=== PATIENT | female | born 1990 | race Caucasian/White ===

== ENCOUNTER 2021-01-15 02:24 | Emergency (ER) | payer BC ==
[~2021-01-15] VITALS: Ht 167.6 cm; Wt 59.0 kg
[2021-01-15] MEDS ORDERED: ONDANSETRON HCL 4MG/2ML INJ IV STA (03:14)
[2021-01-15] MEDS ORDERED: SODIUM CHLORIDE 0.9% 1,000 ML IV ONE (03:15)
[2021-01-15 04:05] LABS: BASOPHILS % 0.3 % (0.0-2.0); EOSINOPHILS % 0.3 % (0.0-5.0); HEMATOCRIT. 40.7 % (36.0-48.0); HEMOGLOBIN. 13.8 g/dL (12.0-16.0); LYMPHOCYTES % 14.2 % (20.0-50.0); MEAN CORPUSCULAR HEMOGLOBIN 28.7 pg (28.0-32.0); MEAN CORPUSCULAR VOLUME 84.5 fL (81.0-99.0); MEAN PLATELET VOLUME 9.1 fl (7.4-10.4); MONOCYTES % 5.8 % (2.0-8.0); NEUTROPHILS % 79.4 % (40.0-76.0); PLATELET 277 x1000/uL (130-400); RED BLOOD CELL COUNT 4.82 mill/uL (4.2-5.4); RED CELL DISTRIBUTION WIDTH 12.3 % (11.6-14.6)
[2021-01-15 04:18] LABS: CHLORIDE 108 mEq/L (98-107)
[2021-01-15 04:20] LABS: HCG SCREEN NEGATIVE
[2021-01-15] MEDS ORDERED: PANTOPRAZOLE SODIUM 40 MG/VIAL IV ONE (04:30)
[2021-01-15 06:45] VITALS: BP 118/60
== END 2021-01-15 07:07 | disposition home or self-care (01) ==
LOC: ER 02:24
DX: R19.7 Diarrhea, unspecified (principal); R06.02 Shortness of breath; R42 Dizziness and giddiness; F41.9 Anxiety disorder, unspecified
CPT/HCPCS: 36415; 71045; 80053; 83880; 84484; 84703; 85025; 85379; 93005; 96361; 96374; 96375; 99285; C9113; J2405; J7030